=== PATIENT | male | born 1980 | race Caucasian/White ===

== ENCOUNTER 2018-05-09 15:01 | Inpatient (IN) | payer OTHER ==
[~2018-05-09] VITALS: Ht 190.5 cm; Wt 96.6 kg
[2018-05-09 15:30] VITALS: BP 95/61
[2018-05-09] MEDS ORDERED: ONDANSETRON PF 4 MG/2 ML VIAL. IV PRN (15:45)
[2018-05-09] MEDS ORDERED: MORPHINE SULFATE 4 MG/ML VIAL. IV PRN (15:45)
[2018-05-09] MEDS ORDERED: IV NORMAL SALINE 1000ML BAG 1,000 ML IV ONE (15:45)
[2018-05-09 17:34] LABS: BASO # 0.1 x10^3/uL (0.0-0.2); BASO % 1 % (0-3); EOS # 0.3 x10^3/uL (0.0-0.7); EOS % 3 % (0-3); HEMATOCRIT 42.7 % (39.0-53.0); HEMOGLOBIN 14.5 g/dL (13.0-17.5); LYMPH # 1.3 x10^3/uL (1.0-4.8); LYMPH % 13 % (24-48); MEAN CORPUSCULAR HEMOGLOBIN 32 pg (25-35); MEAN CORPUSCULAR HGB CONC 34 g/dL (31-37); MEAN CORPUSCULAR VOLUME 95 fL (79-100); MONO # 0.6 x10^3/uL (0.0-1.1); MONO % 5 % (0-9); NEUT % 78 % (31-73); PLATELET COUNT 245 x10^3/uL (140-400); RED BLOOD COUNT 4.51 x10^6/uL (4.30-5.70); RED CELL DISTRIBUTION WIDTH 12.6 % (11.5-14.5); WHITE BLOOD COUNT 10.2 x10^3/uL (4.0-11.0)
[2018-05-09 17:50] LABS: CALCIUM 9.5 mg/dL (8.5-10.1); GFR 84.1; POTASSIUM 4.3 mmol/L (3.5-5.1)
[2018-05-09 17:56] LABS: ALBUMIN 3.5 g/dL (3.4-5.0); ALBUMIN/GLOBULIN RATIO 0.8 (1.0-1.7); TOTAL BILIRUBIN 0.5 mg/dL (0.2-1.0); TOTAL PROTEIN 7.8 g/dL (6.4-8.2)
[2018-05-09] MEDS: IV NORMAL SALINE 1000ML BAG 1,000 ML IV SCH ×2 (18:26→21:05)
[2018-05-09] MEDS: MEROPENEM 500 MG in IV NORMAL SALINE 50ML 50 ML IV SCH (18:47)
[2018-05-09] MEDS ORDERED: HYDROmorphone 2 MG/ML VIAL IV PRN (19:00)
[2018-05-09] MEDS ORDERED: DAPTOmycin (GENERIC) IVPB 580 MG in IV NORMAL SALINE 50ML 50 ML IV ONE (19:30)
[2018-05-09] MEDS ORDERED: MORP30TA83 PO (19:33)
[2018-05-09] MEDS ORDERED: CLON1TAB11 PO (19:33)
[2018-05-09] MEDS ORDERED: DOXY50CA PO (19:33)
[2018-05-09] MEDS ORDERED: SERT100T PO (19:33)
[2018-05-09] MEDS ORDERED: HYDR2TAB31 PO (19:33)
[2018-05-09] MEDS ORDERED: ONDA4TAB7 PO (19:33)
[2018-05-09 19:35] VITALS: BP 121/74
--- NOTE | 2018-05-09 19:59 | NUR ---
pt arrived to unit at 1530 via wheelchair from doctors office. pt is alert and oriented and complaining of 10/10 pain. pt is on RA. pt has abdominal wound and states he has been taking care of it at home for 2 months and that he hasnt seen a wound care center for this. pt also states he has been on doxycycline for 2 months for MRSA in the wound and is now having diarrhea. pt was informed that we need a cdiff sample and a wound culture was sent down. pt has call light within reach. will continue to monitor.
[2018-05-09] MEDS ORDERED: ONDANSETRON ODT 4 MG TAB.RAPDIS. PO PRN (20:00)
[2018-05-09] MEDS: MORPHINE ER 30 MG TABLET.ER PO SCH (21:04)
[2018-05-09] MEDS: clonazePAM 1 MG TABLET PO SCH (21:04)
[2018-05-09 23:16] VITALS: BP 152/84
[2018-05-10] MEDS: HYDROmorphone 2 MG TABLET PO PRN ×2 (00:30→12:45)
[2018-05-10] MEDS: MEROPENEM 500 MG in IV NORMAL SALINE 50ML 50 ML IV SCH ×2 (00:30→05:55)
[2018-05-10] MEDS: HYDROmorphone 2 MG/ML VIAL IV PRN ×9 (01:12→22:51)
[2018-05-10 03:18] VITALS: BP 129/82
[2018-05-10] MEDS: IV NORMAL SALINE 1000ML BAG 1,000 ML IV SCH ×2 (06:09→18:25)
[2018-05-10 07:00] VITALS: BP 102/60
--- NOTE | 2018-05-10 08:23 | PDOC ---
Infectious Disease Note Vital Sign Vital Signs Vital Signs Date Time Temp Pulse Resp B/P (MAP) Pulse Ox O2 Delivery O2 Flow Rate FiO2 05/10/18 06:23 96 Room Air 05/10/18 03:18 98.1 91 18 129/82 (98) 98.1 Labs Lab Laboratory Tests Test 05/09/18 17:25 White Blood Count 10.2 x10^3/uL (4.0-11.0) Red Blood Count 4.51 x10^6/uL (4.30-5.70) Hemoglobin 14.5 g/dL (13.0-17.5) Hematocrit 42.7 % (39.0-53.0) Mean Corpuscular Volume 95 fL (79-100) Mean Corpuscular Hemoglobin 32 pg (25-35) Mean Corpuscular Hemoglobin Concent 34 g/dL (31-37) Red Cell Distribution Width 12.6 % (11.5-14.5) Platelet Count 245 x10^3/uL (140-400) Neutrophils (%) (Auto) 78 % (31-73) Lymphocytes (%) (Auto) 13 % (24-48) Monocytes (%) (Auto) 5 % (0-9) Eosinophils (%) (Auto) 3 % (0-3) Basophils (%) (Auto) 1 % (0-3) Neutrophils # (Auto) 8.0 x10^3uL (1.8-7.7) Lymphocytes # (Auto) 1.3 x10^3/uL (1.0-4.8) Monocytes # (Auto) 0.6 x10^3/uL (0.0-1.1) Eosinophils # (Auto) 0.3 x10^3/uL (0.0-0.7) Basophils # (Auto) 0.1 x10^3/uL (0.0-0.2) Sodium Level 139 mmol/L (136-145) Potassium Level 4.3 mmol/L (3.5-5.1) Chloride Level 103 mmol/L (98-107) Carbon Dioxide Level 25 mmol/L (21-32) Anion Gap 11 (6-14) Blood Urea Nitrogen 4 mg/dL (8-26) Creatinine 1.0 mg/dL (0.7-1.3) Estimated GFR (Cockcroft-Gault) 84.1 BUN/Creatinine Ratio 4 (6-20) Glucose Level 90 mg/dL (70-99) Calcium Level 9.5 mg/dL (8.5-10.1) Total Bilirubin 0.5 mg/dL (0.2-1.0) Aspartate Amino Transf (AST/SGOT) 15 U/L (15-37) Alanine Aminotransferase (ALT/SGPT) 25 U/L (16-63) Alkaline Phosphatase 81 U/L (46-116) Total Protein 7.8 g/dL (6.4-8.2) Albumin 3.5 g/dL (3.4-5.0) Albumin/Globulin Ratio 0.8 (1.0-1.7) Objective Assessment Abd wound Abx allergies (PCN but has tolerated Amox) Vanc - redmans MRSA + currently on Doxy Diarrhea - resolved Anxiety disorder Plan Plan of Care Cont Meropenem but 1 gm q 8 Add po Zyvox Add surgical eval Await CT eval r/o abscess F/u labs and cults Thank you # [phone] SYLVIA BROWN MD May 10, 2018 08:23
--- NOTE | 2018-05-10 08:34 | PDOC2 ---
CHRISTY [facility]A [facility] 05/10/18 0834: CONSULT Date of Consult Date of Consult DATE: 05/10/18 TIME: 08:25 Reason for Consult Reason for Consult: abdominal wound Referring Physician Referring Physician: Dr Yeung Identification/Chief Complaint Chief Complaint abdominal wound Source Source: Chart review, Patient History of Present Illness Reason for Visit: Patient from a [facility]. Multiple abdominal surgeries for bowel perforations. Last surgery was in Feb 2018 after swallowing a pin, perf bowel. Enloe removed and wound did not heal. Has been doing wound care and packing wound Seen by pcp yesterday, having diarrhea increasing drainage and pain to wound--concern for abscess and sent for evaluation Past Medical History Psych: Anxiety, Depression, Other (suicidial ) Past Surgical History Past Surgical History: Appendectomy, Other (mulitple abdominal surgeries) Family History Family History: Other (noncontributory to current illness ) Social History <1 pack per day ALCOHOL: none Drugs: None Current Medications Current Medications Current Medications Morphine Sulfate (Morphine Sulfate) 4 mg PRN Q4HRS PRN IV PAIN Last administered on 05/09/18at 18:25; Start 05/09/18 at 15:45; Stop 05/09/18 at 18:58 ; Status DC Ondansetron HCl (Zofran) 4 mg PRN Q4HRS PRN IV NAUSEA/VOMITING; Start 05/09/18 at 15:45 Sodium Chloride 1,000 ml @ 150 mls/hr Q6H40M IV Last administered on at 06:09; Start 05/09/18 at 15:45 Sodium Chloride 1,000 ml @ 1,000 mls/hr 1X ONCE IV Last administered on at 18:26; Start 05/09/18 at 15:45; Stop 05/09/18 at 16:44; Status DC Meropenem 500 mg/ Sodium Chloride 50 ml @ 100 mls/hr Q6HRS IV ; Start 05/10/18 at 19:00; Stop 05/10/18 at 19:00; Status DC Daptomycin 580 mg/ Sodium Chloride 50 ml @ 100 mls/hr 1X ONCE IV Last administered on 05/09/18at 19:56; Start 05/09/18 at 19:30; Stop 05/09/18 at 19:59 ; Status DC Meropenem 500 mg/ Sodium Chloride 50 ml @ 100 mls/hr Q6HRS IV Last administered on 05/10/18at 05:55; Start 05/09/18 at 19:00 Hydromorphone HCl (Dilaudid) 2 mg PRN Q4HRS PRN IV PAIN Last administered on at 22:15; Start 05/09/18 at 19:00; Stop 05/10/18 at 00:51; Status DC Clonazepam (KlonoPIN) 1 mg BID PO Last administered on 05/09/18at 21:04; Start 05/09/18 at 21:00 Morphine Sulfate (Ms Contin) 30 mg BID PO Last administered on 05/09/18at 21:04 ; Start 05/09/18 at 21:00 Hydromorphone HCl (Dilaudid) 2 mg PRN Q4HRS PRN PO PAIN Last administered on at 00:30; Start 05/09/18 at 20:00 Ondansetron HCl (Zofran Odt) 4 mg PRN Q6HRS PRN PO NAUSEA/VOMITING; Start 05/09 at 20:00 Sertraline HCl (Zoloft) 200 mg DAILY PO ; Start 05/10/18 at 09:00 Hydromorphone HCl (Dilaudid) 2 mg PRN Q2HR PRN IV PAIN Last administered on at 06:23; Start 05/10/18 at 01:00 Linezolid (Zyvox) 600 mg BID PO ; Start 05/10/18 at 09:00 Active Scripts Active Reported Doxycycline Hyclate 50 Mg Capsule 0 PO BID Zoloft (Sertraline Hcl) 100 Mg Tablet 200 Mg PO DAILY Dilaudid (Hydromorphone Hcl) 2 Mg Tablet 2 Mg PO PRN Q4HRS PRN Ms Contin (Morphine Sulfate) 30 Mg Tablet.er 1 Tab PO BID Clonazepam 1 Mg Tablet 1 Tab PO BID Zofran (Ondansetron Hcl) 4 Mg Tablet 1 Tab PO PRN Q6HRS PRN Allergies Allergies: Coded Allergies: Penicillins (Verified Allergy, Intermediate, Unknown, 05/09/18) fentanyl (Verified Allergy, Mild, Itching, 05/09/18) vancomycin (Verified Adverse Reaction, Mild, 05/09/18) "red man syndrome" ROS General: YES: Chills, Appetite (loss); No: Other (fevers) PSYCHOLOGICAL ROS: YES: Anxiety, Depression Eyes: No Blurry vision, No Double vision HEENT: No: Heacaches, Sore Throat Hematological and Lymphatic: No: Bleeding Problems, Blood Clots Respiratory: No: Cough Cardiovascular: No Chest Pain, No Palpitations Gastrointestinal: Yes Abdominal Pain; No Vomiting Genitourinary: No Dysuria, No Hematuria Musculoskeletal: No Joint Pain, No Muscle Pain Neurological: No Impaired Coord/balance, No Numbness/Tingling Skin: Yes Other (see hpi) Physical Exam General: Alert, Oriented X3, Cooperative, No acute distress HEENT: PERRLA, Mucous membr. moist/pink Lungs: Clear to auscultation, Normal air movement Heart: Regular rate, Normal S1, Normal S2, No murmurs Abdomen: Soft, Other (scarred abdomen from mulitple surgeries, open wound to left abdomen--tender, ? swelling under wound, attempted to probe, however very tender on exam, some drainage, mild erythema ) Extremities: No clubbing, No cyanosis Neuro: Normal speech, Sensation intact Psych/Mental Status: Mental status NL, Mood NL Vitals VITALS Vital Signs Date Time Temp Pulse Resp B/P (MAP) Pulse Ox O2 Delivery O2 Flow Rate FiO2 05/10/18 06:23 96 Room Air 05/10/18 03:18 98.1 91 18 129/82 (98) 98.1 Labs Labs Laboratory Tests Test 05/09/18 17:25 White Blood Count 10.2 x10^3/uL (4.0-11.0) Red Blood Count 4.51 x10^6/uL (4.30-5.70) Hemoglobin 14.5 g/dL (13.0-17.5) Hematocrit 42.7 % (39.0-53.0) Mean Corpuscular Volume 95 fL (79-100) Mean Corpuscular Hemoglobin 32 pg (25-35) Mean Corpuscular Hemoglobin Concent 34 g/dL (31-37) Red Cell Distribution Width 12.6 % (11.5-14.5) Platelet Count 245 x10^3/uL (140-400) Neutrophils (%) (Auto) 78 % (31-73) Lymphocytes (%) (Auto) 13 % (24-48) Monocytes (%) (Auto) 5 % (0-9) Eosinophils (%) (Auto) 3 % (0-3) Basophils (%) (Auto) 1 % (0-3) Neutrophils # (Auto) 8.0 x10^3uL (1.8-7.7) Lymphocytes # (Auto) 1.3 x10^3/uL (1.0-4.8) Monocytes # (Auto) 0.6 x10^3/uL (0.0-1.1) Eosinophils # (Auto) 0.3 x10^3/uL (0.0-0.7) Basophils # (Auto) 0.1 x10^3/uL (0.0-0.2) Sodium Level 139 mmol/L (136-145) Potassium Level 4.3 mmol/L (3.5-5.1) Chloride Level 103 mmol/L (98-107) Carbon Dioxide Level 25 mmol/L (21-32) Anion Gap 11 (6-14) Blood Urea Nitrogen 4 mg/dL (8-26) Creatinine 1.0 mg/dL (0.7-1.3) Estimated GFR (Cockcroft-Gault) 84.1 BUN/Creatinine Ratio 4 (6-20) Glucose Level 90 mg/dL (70-99) Calcium Level 9.5 mg/dL (8.5-10.1) Total Bilirubin 0.5 mg/dL (0.2-1.0) Aspartate Amino Transf (AST/SGOT) 15 U/L (15-37) Alanine Aminotransferase (ALT/SGPT) 25 U/L (16-63) Alkaline Phosphatase 81 U/L (46-116) Total Protein 7.8 g/dL (6.4-8.2) Albumin 3.5 g/dL (3.4-5.0) Albumin/Globulin Ratio 0.8 (1.0-1.7) Laboratory Tests Test 05/09/18 17:25 White Blood Count 10.2 x10^3/uL (4.0-11.0) Red Blood Count 4.51 x10^6/uL (4.30-5.70) Hemoglobin 14.5 g/dL (13.0-17.5) Hematocrit 42.7 % (39.0-53.0) Mean Corpuscular Volume 95 fL (79-100) Mean Corpuscular Hemoglobin 32 pg (25-35) Mean Corpuscular Hemoglobin Concent 34 g/dL (31-37) Red Cell Distribution Width 12.6 % (11.5-14.5) Platelet Count 245 x10^3/uL (140-400) Neutrophils (%) (Auto) 78 % (31-73) Lymphocytes (%) (Auto) 13 % (24-48) Monocytes (%) (Auto) 5 % (0-9) Eosinophils (%) (Auto) 3 % (0-3) Basophils (%) (Auto) 1 % (0-3) Neutrophils # (Auto) 8.0 x10^3uL (1.8-7.7) Lymphocytes # (Auto) 1.3 x10^3/uL (1.0-4.8) Monocytes # (Auto) 0.6 x10^3/uL (0.0-1.1) Eosinophils # (Auto) 0.3 x10^3/uL (0.0-0.7) Basophils # (Auto) 0.1 x10^3/uL (0.0-0.2) Sodium Level 139 mmol/L (136-145) Potassium Level 4.3 mmol/L (3.5-5.1) Chloride Level 103 mmol/L (98-107) Carbon Dioxide Level 25 mmol/L (21-32) Anion Gap 11 (6-14) Blood Urea Nitrogen 4 mg/dL (8-26) Creatinine 1.0 mg/dL (0.7-1.3) Estimated GFR (Cockcroft-Gault) 84.1 BUN/Creatinine Ratio 4 (6-20) Glucose Level 90 mg/dL (70-99) Calcium Level 9.5 mg/dL (8.5-10.1) Total Bilirubin 0.5 mg/dL (0.2-1.0) Aspartate Amino Transf (AST/SGOT) 15 U/L (15-37) Alanine Aminotransferase (ALT/SGPT) 25 U/L (16-63) Alkaline Phosphatase 81 U/L (46-116) Total Protein 7.8 g/dL (6.4-8.2) Albumin 3.5 g/dL (3.4-5.0) Albumin/Globulin Ratio 0.8 (1.0-1.7) Assessment/Plan Assessment/Plan chronic abdominal wound will await CT will consult wound care WALDEMAR HENNING MD 05/10/18 1148: CONSULT Assessment/Plan Assessment/Plan Patient seen and examined by me would like to eat. His abdomen has multiple scars deformity there is a open wound with granulation tissue small amount of fluid area around the wound is tender to palpation. CT scan shows deformity and open wound no evidence of drainable fluid collection or abscess. Agree with [place] assessment plan with wound care and antibiotics for cellulitis CHRISTY ARRIAGA APRN May 10, 2018 08:34 WALDEMAR HENNING MD May 10, 2018 11:48
[2018-05-10] MEDS ORDERED: IOHEXOL 300 MG/ML 100ML VIAL. IV ONE (09:15)
--- NOTE | 2018-05-10 09:20 | NUR ---
SW has reviewed pt's medical chart and evaluated for potential dc needs. Pt is from a mental health facility and was admitted for wound care. Pt has a hx of MDD and KELSEY. SW will follow for wound care needs and return to facility upon dc.
[2018-05-10] MEDS ORDERED: CONTRAST GIVEN. MC PRN (09:30)
--- NOTE | 2018-05-10 09:52 | CONS ---
DATE OF CONSULTATION: 05/10/2018 LOCATION: The patient's room is 414. REQUESTING PHYSICIAN: Dr. Yeung. REASON FOR CONSULTATION: Abdominal wound. HISTORY OF PRESENT ILLNESS: The patient is a 37-year-old gentleman with history of anxiety, compulsive disorder. He states at age 11, he underwent an appendectomy. Since that time, he has had complications with Pica and has had multiple abdominal surgeries secondary to obstruction and thick adhesions. He states his last surgery was performed at [facility] in February. When he followed up to have his idania removed, it appeared that the wound was somewhat swollen. [place] were removed. Apparently, a fair amount of material was expressed. It was decided at that time they are going to let the wound heal by secondary intention. At that time, he did not qualify for a wound VAC. He has since seen Dr. Worthington. Dr. Worthington recommend him to get a CT scan at [facility]; however, he had been having a fair amount of diarrhea and was dehydrated. When he went to [facility], they could not get an IV placed, though he had already drank the contrast. He then followed up with Dr. Worthington who [facility]. Yesterday, I was consulted. Recommended institution of Zosyn, was then called back and told he was ALLERGIC TO ZOSYN, changed it to meropenem. We had no laboratory values at that time. Also, he was told that he had a red man syndrome with vancomycin. Therefore, daptomycin was instituted. He has been complaining of some loose stools; however, these have improved. He also has had some chills and sweats, but no direct fevers. He has no headaches, sore throat, cough, chest pain. No dysuria, frequency, urgency and denies any falls or trauma. PAST MEDICAL HISTORY: Positive for depression, severe anxiety, some questionable obsessive compulsive. PAST SURGICAL HISTORY: Positive for appendectomy. Also has had 10 abdominal surgeries with a history of perforation, impaction. Also, recently admitted to [facility]. REVIEW OF SYSTEMS: Otherwise negative. ALLERGIES: LISTED VANCOMYCIN CAUSING RED MAN'S. PENICILLIN IS LISTED, BUT HE HAS TOLERATED AMOXICILLIN AND AUGMENTIN. ALSO, MS CONTIN, FENTANYL, MORPHINE AND DARVOCET LISTED. SOCIAL HISTORY: He is a smoker. He is , has two children. Denies any alcohol. Works for [employer]. FAMILY HISTORY: Positive for diabetes, high blood pressure, heart disease. CURRENT MEDICATIONS: Include Daptomycin x 1, meropenem 500 q.6, Klonopin, Dilaudid, MS Contin. Jayden. Benedict Sorensen. PHYSICAL EXAMINATION: VITAL SIGNS: He is afebrile, has been afebrile since admission. Temperature 98.1, pulse 91, respirations 18, blood pressure 129/82, sat 96% on room air. CONSTITUTIONAL: He is alert, cooperative. He is in no acute distress. HEENT: Pupils are equal and reactive. He has normal conjunctivae. Oral cavity, pharynx clear. NECK: Supple. Good range of motion. LUNGS: Clear to auscultation bilaterally. HEART: S1, S2. ABDOMEN: Soft, nondistended. He has got an abdominal wound in his left mid to lower section. Appears to be clean. There is no gross surrounding erythema, although does have some tenderness. There is, maybe, some fullness associated with it as well. EXTREMITIES: Without clubbing, cyanosis or gross edema. He has got a right upper extremity PICC line without signs of any complications. SKIN: Warm to touch without signs of rash. He has multiple tattoos. NEUROLOGIC: He is nonfocal, answered questions appropriately, moves all extremities. PSYCHIATRIC: Affect is appropriate. LABORATORY DATA: White count 10.2, hemoglobin of 14.5, platelets of 245, neutrophils 78, lymphs are 13. Creatinine of 1, with normal liver function study tests. There is no radiological studies. IMPRESSION: 1. Abdominal wound. 2. Antibiotic allergies, HAS PENICILLIN LISTED, but has tolerated amoxicillin and Augmentin. 3. VANCOMYCIN LISTED RED MAN'S. 4. History of methicillin-resistant Staphylococcus aureus, currently on doxycycline prior to admission. 5. Diarrhea, has resolved. 6. Anxiety disorder. RECOMMENDATIONS: We will continue the meropenem 1 gram IV q.8. Add p.o. Zyvox. Await surgical evaluation. Await CT scan to rule out abscess. Follow up labs and follow up cultures. Thank you for the opportunity to participate in the patient's care. Should you have any questions, please do not hesitate to contact me. SYLVIA BROWN MD DR: ANÍBAL/leticia JOB#: [id number] / [id number]
--- NOTE | 2018-05-10 10:12 | HP ---
ADMIT DATE: 05/09/2018 HISTORY OF PRESENT ILLNESS: The patient is a 37-year-old male patient, who was seen yesterday at Dr. Worthington's office and who contacted me as he has nonhealing abdominal wound. He was also apparently dehydrated, has had nausea and recurrent bouts of diarrhea and therefore, a decision was made to admit him to [place] directly to start him on IV fluid, arrange for CT scan of the abdomen and pelvis as well as consult the Surgical team as well as the Infectious Disease and Wound Care team. Apparently, he has undergone about 12 abdominal surgeries in multiple places including [place], [place], [facility] and [place]. The last surgery was done in [facility] on 02/2018 after swallowing a pen with resultant perforated bowel. Apparently, staple was removed and wound did not dehisce, has been doing wound care and packing his wounds without much success and therefore, resulted in this admission. PAST MEDICAL HISTORY: Significant for anxiety, depression, and suicidal attempt. PAST SURGICAL HISTORY: Significant for appendectomy and multiple abdominal surgeries. FAMILY HISTORY: Noncontributory. SOCIAL HISTORY: He is . He smokes cigarettes, does not drink alcohol or recreational drugs. 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 ALLERGIES: He is allergic to PENICILLIN, FENTANYL, VANCOMYCIN and DARVOCET. MEDICATIONS: He was on following medications: He was on doxycycline 50 mg p.o. b.i.d., hydromorphone 2 mg every 4 hours, morphine sulfate extended release 30 mg twice a day, clonazepam 1 mg b.i.d., sertraline 100 mg once a day, and ondansetron 4 mg every 6 hours. REVIEW OF SYSTEMS: As per history of present illness. PHYSICAL EXAMINATION: GENERAL: When I examined him, he looked well and was clearly in no apparent respiratory distress. No pallor, jaundice, cyanosis, or thyromegaly. No jugular venous distension. No lower limb edema. VITAL SIGNS: His heart rate was 90, blood pressure was 95/61, temperature was 98, respiratory rate 18 and oxygen saturation was 96%. HEAD, EYES, EARS, NOSE AND THROAT: Showed normocephalic, atraumatic. NECK: Supple. HEART: Showed normal first and second sounds. No gallop, rub or murmur. CHEST: Clear to auscultation. No crepitation or rhonchi. ABDOMEN: Distended, soft, nontender with chronic abdominal wound covered with dressing. There is no tenderness. No guarding or rigidity. No organomegaly. All hernial orifice intact. Bowel sounds normal. NEUROLOGIC: He was awake, alert, responding appropriately. All cranial nerves intact. EXTREMITIES: He moves extremities without difficulty, ambulates without assistance or assistive devices. LABORATORY DATA: Showed a white cell count 10,200, hemoglobin 14.5, hematocrit 42, MCV 95, and platelet count of 245,000. His chemistry showed a serum sodium 139, potassium 4.3, chloride 103, bicarbonate 11, BUN 4, creatinine 1, estimated GFR was 84 mL per minute. His glucose was 90, calcium was 9.5. Total bilirubin, AST, ALT, alkaline phosphatase were normal. Total protein was 7.8, albumin was 3.5. ASSESSMENT AND PLAN: The patient was continued on meropenem and continued his oral pain medication. I arranged for him to have the lab work as well as CT scan of the abdomen and pelvis with contrast. As it is difficult to get an IV access, I arranged for him also to have a PICC line. Once we have that we will arrange for a CT scan of the abdomen and pelvis with IV contrast. His creatinine is normal. I will consult the Surgical Team and Wound Care Team, Infectious Disease and decide on further management accordingly. FATIMAH NOLAND MD DR: SHANNAN/leticia JOB#: [id number] / [id number]
--- NOTE | 2018-05-10 10:38 | RAD ---
CT of the abdomen and pelvis with contrast, 05/10/2018: HISTORY: Abdominal wound, bowel resection Multidetector CT imaging was performed following an IV bolus injection of iodinated contrast material. No oral contrast material was administered for this study. There is contrast material in the colon, presumably from a previous diagnostic study. No hepatic abnormality is identified. The gallbladder is unremarkable. The pancreas shows no abnormality. The spleen is of normal size. No renal or adrenal abnormality is detected. The abdominal aorta is unremarkable. No abdominal or pelvic adenopathy is seen. The bladder is unremarkable. There are surgical sutures related to small bowel loops in the left upper quadrant and in the right lower quadrant. No bowel dilatation is seen to suggest obstruction. No free air or free fluid is seen within the abdomen. There is deformity of the anterior abdominal wall centered at the mid abdomen level. There appears to be an open wound centered just the left of midline. There are streaky subcutaneous opacities compatible with inflammation and/or scarring. There is a 2.2 cm elongated radiopacity in the subcutaneous soft tissues just the left of midline which may represent a large surgical clip. Some other type of foreign body cannot be excluded. There are gas collections in the subcutaneous soft tissues in this region. There is soft tissue thickening involving the fascia between the thinned rectus abdominis musculature likely due to to scarring. There is underlying matted small bowel loops without definite extension into the subcutaneous soft tissues. IMPRESSION: 1. Previous small bowel surgeries. 2. Scarring and deformity involving the anterior abdominal wall at the midline with matting of underlying small bowel loops. An open wound is evident to the left of midline with adjacent subcutaneous gas collections and streaky edema. No discrete drainable fluid collection is seen in the abdominal wall. PQRS Compliance Statement: One or more of the following individualized dose reduction techniques were utilized for this examination: 1. Automated exposure control 2. Adjustment of the mA and/or kV according to patient size 3. Use of iterative reconstruction technique Electronically signed by: James Jiang MD (05/10/2018 10:35 AM) [facility]
[2018-05-10 11:00] VITALS: BP 97/58
[2018-05-10] MEDS: clonazePAM 1 MG TABLET PO SCH ×2 (12:49→20:33)
[2018-05-10] MEDS: SERTRALINE 50 MG TABLET. PO SCH (12:49)
[2018-05-10] MEDS: MORPHINE ER 30 MG TABLET.ER PO SCH ×2 (12:50→20:33)
[2018-05-10 15:00] VITALS: BP 99/55
--- NOTE | 2018-05-10 17:38 | NUR ---
Wound Care: Consult to eval and treat pt for open abdominal wound from prior multiple operations. Per Soumya CORONA, OK to start veraflow wound vac to treat wound. Wound measured (see detailed assessment), packed with one piece of black foam. Periwound prepared with ostomy ring and skin prep. Veraflow set to instill 16cc every 3.5 hours for a 10 minute dwell time. No other open areas noted on head to toe inspection. D/t pain intolerance, vac settings reduced to 100mmhg of suction. Plan to follow up 05/13/18
[2018-05-10] MEDS: MULTIVITAMIN with MINERAL TABLET. PO SCH (18:26)
[2018-05-10] MEDS: LINEZOLID 600 MG TABLET PO SCH ×2 (18:27→20:33)
[2018-05-10] MEDS: ASCORBIC ACID 500 MG TABLET PO SCH (18:27)
[2018-05-10] MEDS: MEROPENEM 1 GM in IV NORMAL SALINE 100ML 100 ML IV SCH ×2 (18:33→22:22)
[2018-05-10] MEDS ORDERED: MEROPENEM 500 MG in IV NORMAL SALINE 50ML 50 ML IV SCH (19:00)
[2018-05-10 19:20] VITALS: BP 108/62
--- NOTE | 2018-05-10 20:25 | PN ---
DATE: 05/10/2018 SUBJECTIVE: The patient is sitting at the edge of the bed comfortably, in no apparent distress. On questioning him, he continued to complain of nausea, has only 1 episode of diarrhea this morning, has some chills, rigors with no fever. OBJECTIVE: GENERAL: When I examined him this morning, he looked well and was clearly in no apparent respiratory distress. No pallor, jaundice, cyanosis or thyromegaly. No jugular venous distention. No limb edema. VITAL SIGNS: Heart rate was 98, blood pressure was 102/60, temperature was 98.1, respiratory rate was 16 and oxygen saturation was 97%. LABORATORY DATA: He has no lab work done this morning, his lab work done yesterday were all within acceptable range. ASSESSMENT AND PLAN: He has a PICC line placed and he has arrangement for a CT scan of the abdomen and pelvis with contrast. He apparently was seen by the Infectious Disease and he is currently on meropenem 1 gram IV q. 8 hourly as well as linezolid 600 mg twice a day. We will continue with his pain medication and antibiotic. Await the result of the CT scan before further management. FATIMAH NOLAND MD DR: SHANNAN/leticia JOB#: [id number] / [id number]
[2018-05-10] MEDS: LACTOBACILLUS RHAMNOSUS GG 1 CAPSULE. PO SCH (20:33)
[2018-05-10 23:08] VITALS: BP 103/66
[2018-05-11] MEDS: IV NORMAL SALINE 1000ML BAG 1,000 ML IV SCH ×4 (01:26→20:39)
[2018-05-11] MEDS: HYDROmorphone 2 MG/ML VIAL IV PRN ×8 (01:26→20:37)
[2018-05-11 03:05] VITALS: BP 102/61
[2018-05-11] MEDS: HYDROmorphone 2 MG TABLET PO PRN ×3 (06:00→22:12)
[2018-05-11] MEDS: MEROPENEM 1 GM in IV NORMAL SALINE 100ML 100 ML IV SCH ×3 (06:05→22:14)
[2018-05-11 07:00] VITALS: BP 91/68
[2018-05-11] MEDS: ASCORBIC ACID 500 MG TABLET PO SCH (09:12)
[2018-05-11] MEDS: LINEZOLID 600 MG TABLET PO SCH ×2 (09:12→20:37)
[2018-05-11] MEDS: MULTIVITAMIN with MINERAL TABLET. PO SCH (09:12)
[2018-05-11] MEDS: LACTOBACILLUS RHAMNOSUS GG 1 CAPSULE. PO SCH ×2 (09:12→20:38)
[2018-05-11] MEDS: clonazePAM 1 MG TABLET PO SCH ×2 (09:13→20:38)
[2018-05-11] MEDS: SERTRALINE 50 MG TABLET. PO SCH (09:13)
[2018-05-11] MEDS: MORPHINE ER 30 MG TABLET.ER PO SCH ×2 (09:13→20:38)
--- NOTE | 2018-05-11 10:52 | PDOC ---
Infectious Disease Note Subjective Subjective c/o pain No F/C/N/V/D/SOA ROS ROS per HPI Vital Sign Vital Signs Vital Signs Date Time Temp Pulse Resp B/P (MAP) Pulse Ox O2 Delivery O2 Flow Rate FiO2 05/11/18 10:17 Room Air 05/11/18 07:00 98.3 85 18 91/68 (76) 97 98.3 Physical Exam PHYSICAL EXAM GENERAL: Propped up in bed, alert, NAD HEENT: Pupils are equal and reactive. He has normal conjunctivae. Oral cavity , pharynx clear. NECK: Supple. Good range of motion. LUNGS: Clear to auscultation bilaterally. HEART: S1, S2. ABDOMEN: Soft, nondistended. Abdominal wound in place, no redness EXTREMITIES: Without clubbing, cyanosis or gross edema. SKIN: Warm to touch without signs of rash. Multiple tattoos. NEUROLOGIC: Alert, nonfocal, answered questions appropriately, moves all extremities. RUE-midline(05/09) clean Labs Lab IMPRESSION: 1. Previous small bowel surgeries. 2. Scarring and deformity involving the anterior abdominal wall at the midline with matting of underlying small bowel loops. An open wound is evident to the left of midline with adjacent subcutaneous gas collections and streaky edema. No discrete drainable fluid collection is seen in the abdominal wall. Micro 05/09/18 Blood Culture - Preliminary, Resulted NO GROWTH AFTER 1 DAY ANAEROBIC-AEROBIC CULTURE PENDING ANAEROBIC RES 1 PENDING AEROBIC CULT PENDING AEROBIC RES 1 PENDING GRAM STAIN Final Final report GRAM STAIN RES 1 Final Comment No white blood cells seen. GRAM STAIN RES 2 Final No organisms seen Objective Assessment Abdominal wound. CT neg abscess. No organisms on gram stain Antibiotic allergies, HAS PENICILLIN LISTED, but has tolerated amoxicillin and Augmentin. VANCOMYCIN LISTED RED MAN'S. History of MRSA, currently on doxycycline prior to admission. Diarrhea, has resolved. Anxiety disorder. Plan Plan of Care Cont Meropenem but 1 gm q 8 and Zyvox Probiotics F/u am labs and cults Supportive care D/w RN Attending Co-Sign Attending Co-Sign The patient was seen and interviewed as well as examined at the bedside. The chart was reviewed. The case was discussed. Agree with the plan of care. RONAK DE LEON APRN May 11, 2018 10:52 SYLVIA BROWN MD May 11, 2018 13:55
[2018-05-11 11:00] VITALS: BP 101/59
--- NOTE | 2018-05-11 14:46 | PDOC ---
SURGICAL PROGRESS NOTE Subjective Pt without new c/o Vital Signs Vital Signs Date Time Temp Pulse Resp B/P (MAP) Pulse Ox O2 Delivery O2 Flow Rate FiO2 05/11/18 14:14 Room Air 05/11/18 11:00 98.2 83 18 101/59 (73) 96 98.2 I&O Intake and Output 05/11/18 07:00 Intake Total 720 ml Balance 720 ml Intake Oral 720 ml # Voids 7 General: Alert, Oriented X3, Cooperative, No acute distress Abdomen: Soft, No tenderness, Other (wound vac in place, hard area just below, but no infection, suspect wound packing) Labs Laboratory Tests Test 05/09/18 17:25 White Blood Count 10.2 x10^3/uL (4.0-11.0) Red Blood Count 4.51 x10^6/uL (4.30-5.70) Hemoglobin 14.5 g/dL (13.0-17.5) Hematocrit 42.7 % (39.0-53.0) Mean Corpuscular Volume 95 fL (79-100) Mean Corpuscular Hemoglobin 32 pg (25-35) Mean Corpuscular Hemoglobin Concent 34 g/dL (31-37) Red Cell Distribution Width 12.6 % (11.5-14.5) Platelet Count 245 x10^3/uL (140-400) Neutrophils (%) (Auto) 78 % (31-73) Lymphocytes (%) (Auto) 13 % (24-48) Monocytes (%) (Auto) 5 % (0-9) Eosinophils (%) (Auto) 3 % (0-3) Basophils (%) (Auto) 1 % (0-3) Neutrophils # (Auto) 8.0 x10^3uL (1.8-7.7) Lymphocytes # (Auto) 1.3 x10^3/uL (1.0-4.8) Monocytes # (Auto) 0.6 x10^3/uL (0.0-1.1) Eosinophils # (Auto) 0.3 x10^3/uL (0.0-0.7) Basophils # (Auto) 0.1 x10^3/uL (0.0-0.2) Sodium Level 139 mmol/L (136-145) Potassium Level 4.3 mmol/L (3.5-5.1) Chloride Level 103 mmol/L (98-107) Carbon Dioxide Level 25 mmol/L (21-32) Anion Gap 11 (6-14) Blood Urea Nitrogen 4 mg/dL (8-26) Creatinine 1.0 mg/dL (0.7-1.3) Estimated GFR (Cockcroft-Gault) 84.1 BUN/Creatinine Ratio 4 (6-20) Glucose Level 90 mg/dL (70-99) Calcium Level 9.5 mg/dL (8.5-10.1) Total Bilirubin 0.5 mg/dL (0.2-1.0) Aspartate Amino Transf (AST/SGOT) 15 U/L (15-37) Alanine Aminotransferase (ALT/SGPT) 25 U/L (16-63) Alkaline Phosphatase 81 U/L (46-116) Total Protein 7.8 g/dL (6.4-8.2) Albumin 3.5 g/dL (3.4-5.0) Albumin/Globulin Ratio 0.8 (1.0-1.7) Problem List abd wound cont wound vac TERRIE CARVAJAL MD May 11, 2018 14:46
[2018-05-11 15:00] VITALS: BP 99/62
[2018-05-11] MEDS ORDERED: ALTEPLASE 1MG SYRINGE. INT CAT ONE (16:00)
[2018-05-11 19:00] VITALS: BP 99/64
--- NOTE | 2018-05-11 20:13 | PN ---
DATE: 05/11/2018 SUBJECTIVE: The patient is resting, slightly propped up in bed, no apparent distress. He is angry at the nursing staff who did not give him IV hydromorphone and basically discontinued the wound VAC suction. His CT scan did not show any evidence of drainable abscess and the wound care team started him on wound VAC assisted closure device. He was seen also by the surgical team and apparently there is no surgical need for any surgical intervention at least for the time being and Infectious Disease specialist started him on meropenem and oral Zyvox. PHYSICAL EXAMINATION: GENERAL: When I examined him this morning, he looked well and was clearly in no apparent respiratory distress, slightly pale, no jaundice, cyanosis, or thyromegaly. No jugular venous distension. No lower limb edema. VITAL SIGNS: His heart rate was 83, blood pressure 102/61, temperature was 98.2, respiratory rate was 18, and oxygen saturation 97%. The rest of the exam is stable, has not really changed. His intake was 480, output was 325. ASSESSMENT AND PLAN: Abdominal wound covered with wound vacuum assisted closure device. The CT scan showed no evidence of any drainable abscess. The plan is to continue with the wound care and wound VAC assisted closure device. Continue with IV antibiotic. Continue with the pain management. I explained to him that we can put him on controlled analgesia just for wound VAC, but he can have his 1 mg of Dilaudid every 2 hours. FATIMAH NOLAND MD DR: SHANNAN/leticia JOB#: [id number] / [id number]
[2018-05-11 23:00] VITALS: BP 104/64
[2018-05-12] MEDS: HYDROmorphone 2 MG/ML VIAL IV PRN ×9 (00:26→22:55)
--- NOTE | 2018-05-12 02:45 | NUR ---
Pt called RN to room for his Midline. When RN assessed Midline site his arm was swollen and the drsg had fluid underneath the tegaderm. Pt denies pain states he can taste the saline when the line is flushed. No blood return noted per shift report that is not new. Will await Dr's approval for continued Midline use. Meantime a 22g was started in his L FA. Iv pain meds were administered and drsg was changed to the Midline. IVF were decreased. Will continue to monitor.
[2018-05-12 03:00] VITALS: BP 108/68
[2018-05-12] MEDS: IV NORMAL SALINE 1000ML BAG 1,000 ML IV SCH ×4 (03:45→23:45)
[2018-05-12] MEDS: MEROPENEM 1 GM in IV NORMAL SALINE 100ML 100 ML IV SCH ×3 (06:24→22:55)
[2018-05-12 07:00] VITALS: BP 96/63
--- NOTE | 2018-05-12 08:03 | RAD ---
PORTABLE CHEST 1V History: RT ARM SWELLING AND REDNESS, PT STATES HAS MIDLINE IV. Comparison: Image available from August 15, 2006 without report. Heart size is not enlarged. No pneumothorax. No pleural effusion. No consolidating infiltrate. IMPRESSION: No consolidating infiltrate. Electronically signed by: Celestino Mark MD (05/12/2018 8:00 AM) [facility]
[2018-05-12] MEDS: SERTRALINE 50 MG TABLET. PO SCH (08:57)
[2018-05-12] MEDS: LACTOBACILLUS RHAMNOSUS GG 1 CAPSULE. PO SCH ×2 (08:57→22:54)
[2018-05-12] MEDS: clonazePAM 1 MG TABLET PO SCH ×2 (08:59→22:54)
[2018-05-12] MEDS: MULTIVITAMIN with MINERAL TABLET. PO SCH (08:59)
[2018-05-12] MEDS: MORPHINE ER 30 MG TABLET.ER PO SCH ×2 (08:59→22:54)
[2018-05-12] MEDS: LINEZOLID 600 MG TABLET PO SCH ×2 (08:59→22:54)
[2018-05-12] MEDS: ASCORBIC ACID 500 MG TABLET PO SCH (09:13)
--- NOTE | 2018-05-12 10:45 | PDOC ---
Infectious Disease Note Subjective Subjective Feels RUE is swollen and hurts some venous Doppler pending Abdomen feels no worse or better - but overall feels better No F/C/N/V/D/SOA ROS ROS per HPI otherwise neg Vital Sign Vital Signs Vital Signs Date Time Temp Pulse Resp B/P (MAP) Pulse Ox O2 Delivery O2 Flow Rate FiO2 05/12/18 09:13 Room Air 05/12/18 07:00 97.9 74 18 96/63 (74) 97 97.9 Physical Exam PHYSICAL EXAM GENERAL: Propped up in bed, alert, NAD HEENT: Pupils are equal and reactive. Oral cavity, pharynx clear. NECK: Supple. Good range of motion. LUNGS: Clear to auscultation bilaterally. HEART: S1, S2. ABDOMEN: Soft, nondistended. Abdominal wound in place, no redness EXTREMITIES: Without clubbing, cyanosis or gross edema. SKIN: Warm to touch without signs of rash. Multiple tattoos. NEUROLOGIC: Alert, nonfocal, answered questions appropriately, moves all extremities. RUE-midline(05/09) bruising Labs Micro IMPRESSION: Positive for deep venous thrombosis. Thrombus identified one of the paired brachial veins. 05/09/18 Blood Culture - Preliminary, Resulted NO GROWTH AFTER 1 DAY ANAEROBIC RES 1 PENDING AEROBIC RES 1 Preliminary Staphylococcus aureus AEROBIC RES 2 Preliminary Beta hemolytic Streptococcus, group B Objective Assessment Abdominal wound w/ Staph aureus and group B strep. CT neg abscess. Antibiotic allergies, HAS PENICILLIN LISTED, but has tolerated amoxicillin and Augmentin. VANCOMYCIN LISTED RED MAN'S. History of MRSA, currently on doxycycline prior to admission. Diarrhea, has resolved. Anxiety disorder. RUE -DVT Plan Plan of Care Cont Zyvox and Meropenem taper soon Probiotics F/u cultures am CBC f/u venous Doppler -reviewed and Dr. Yeung notified Supportive care Attending Co-Sign Attending Co-Sign The patient was seen and interviewed as well as examined at the bedside. The chart was reviewed. The case was discussed. Agree with the plan of care. RONAK DE LEON APRN May 12, 2018 10:45 SYLVIA BROWN MD May 12, 2018 12:39
[2018-05-12 11:00] VITALS: BP 95/58
--- NOTE | 2018-05-12 11:24 | RAD ---
Right upper extremity venous Doppler ultrasound HISTORY: RT ARM SWELLING, ML CATHETER IN PLACE TECHNIQUE: Grayscale, color Doppler and spectral waveform analysis is performed. Findings: Right internal jugular vein, subclavian vein and axillary vein appear patent. There is evidence of thrombus within one of the right brachial veins extending from the site of catheter placement to the axillary vein junction. Right basilic and cephalic veins are patent. IMPRESSION: Positive for deep venous thrombosis. Thrombus identified one of the paired brachial veins. FOR INTERNAL CODING PURPOSES Critical result: Findings discussed with nurse Mayra at 05/12/2018 11:18 AM. RESULT CODE: (C) Electronically signed by: Celestino Mark MD (05/12/2018 11:20 AM) [facility]
[2018-05-12] MEDS: HYDROmorphone 2 MG TABLET PO PRN (11:49)
--- NOTE | 2018-05-12 14:25 | PDOC ---
SURGICAL PROGRESS NOTE Subjective Pt without new c/o Vital Signs Vital Signs Date Time Temp Pulse Resp B/P (MAP) Pulse Ox O2 Delivery O2 Flow Rate FiO2 05/12/18 12:49 Room Air 05/12/18 11:00 98.5 73 18 95/58 (70) 97 98.5 I&O Intake and Output 05/12/18 07:00 Intake Total 120 ml Output Total 400 ml Balance -280 ml Intake Oral 120 ml Output Urine Total 400 ml # Voids 5 General: Alert, Oriented X3, Cooperative, No acute distress Abdomen: Soft, No tenderness, Other (wound vac in place) Problem List wound dehis cont wound vac DVT per primary TERRIE CARVAJAL MD May 12, 2018 14:25
--- NOTE | 2018-05-12 14:27 | NUR ---
This nurse called Dr. Yeung to discuss pain management, patient can do one IV or PO, not both together. Midline will be reassess tomorrow on need, or if should be taken out. This nurse will continue to monitor.
--- NOTE | 2018-05-12 14:45 | NUR ---
This nurse discussed with patient, IV vs PO, importance of pain management, safety. Patient stated, "I will leave AMA if you will not give me IV pain medications." This nurse educated patient on wound, DVT, and outcomes if leaving AMA. Notified MD STARR stated, "Do only IV at this time, patient is welcome to leave AMA, do education on DVT, wound, and outcomes." This nurse will enforce teaching, and will continue to assist with patient as needed.
[2018-05-12 15:00] VITALS: BP 98/65
--- NOTE | 2018-05-12 15:09 | PN ---
DATE: 05/12/2018 SUBJECTIVE: The patient is resting slightly propped up in bed, no apparent distress, awake, alert. On questioning, he is complaining of swelling of his right upper extremity after placement of his PICC line. Otherwise, his pain is well controlled. Continues to be on a wound vacuum assisted closure device for the abdominal wound. PHYSICAL EXAMINATION: GENERAL: When I examined him, he looked pale, not jaundiced, cyanosis, or thyromegaly. No jugular venous distension. No lower limb edema. VITAL SIGNS: His heart rate was 78, blood pressure was 108/58, temperature was 98.3, respiratory rate was 18 and oxygen saturation was 98% on room air. The rest of clinical exam is stable, has not really changed. LABORATORY DATA: Within acceptable range. ASSESSMENT: Abdominal wound, covered with wound vacuum assisted closure device. CT scan showed no evidence of any drainable abscesses. PLAN: To continue with wound care and wound VAC and assistive device. Continue with IV antibiotic and pain management. I will arrange for him to have a chest x-ray to confirm the placement of his PICC line. FATIMAH NOLAND MD DR: SHANNAN/leticia JOB#: [id number] / [id number]
[2018-05-12 19:00] VITALS: BP 108/64
[2018-05-12 23:00] VITALS: BP 116/73
[2018-05-13] MEDS: HYDROmorphone 2 MG/ML VIAL IV PRN ×10 (01:21→22:12)
[2018-05-13 03:00] VITALS: BP 97/55
--- NOTE | 2018-05-13 04:00 | NUR ---
Changed canister on wound vac.
[2018-05-13] MEDS: IV NORMAL SALINE 1000ML BAG 1,000 ML IV SCH ×4 (06:44→20:14)
[2018-05-13] MEDS: MEROPENEM 1 GM in IV NORMAL SALINE 100ML 100 ML IV SCH (06:44)
[2018-05-13 07:00] VITALS: BP 101/62
--- NOTE | 2018-05-13 08:45 | PDOC ---
Infectious Disease Note Subjective Subjective Feels RUE is swollen and hurts some venous Doppler pending Abdomen feels no worse or better - but overall feels better No F/C/N/V/D/SOA Vital Sign Vital Signs Vital Signs Date Time Temp Pulse Resp B/P (MAP) Pulse Ox O2 Delivery O2 Flow Rate FiO2 05/13/18 07:40 16 Room Air 05/13/18 03:00 98.1 67 97/55 (69) 96 98.1 Physical Exam PHYSICAL EXAM GENERAL: Propped up in bed, alert, NAD HEENT: Pupils are equal and reactive. Oral cavity, pharynx clear. NECK: Supple. Good range of motion. LUNGS: Clear to auscultation bilaterally. HEART: S1, S2. ABDOMEN: Soft, nondistended. Abdominal wound in place, no redness ,, wound is clean and healthy granulation, tunneling to 8 o'clock position EXTREMITIES: Without clubbing, cyanosis or gross edema. SKIN: Warm to touch without signs of rash. Multiple tattoos. NEUROLOGIC: Alert, nonfocal, answered questions appropriately, moves all extremities. RUE-midline(05/09) bruising Labs Micro Microbiology 05/09/18 Blood Culture - Preliminary, Resulted NO GROWTH AFTER 3 DAYS 05/09/18 Anaerobic/Aerobic Culture, Resulted Pending 05/09/18 Anaerobic Culture Result 1 (ISMAEL), Resulted Pending 05/09/18 Aerobic Culture - Final, Resulted 05/09/18 Aerobic Culture Result 1 (ISMAEL) - Final, Resulted 05/09/18 Aerobic Culture Result 2 (ISMAEL) - Final, Resulted 05/09/18 Antimicrobic Susceptibility - Final, Resulted 05/09/18 Gram Stain - Final, Resulted 05/09/18 Gram Stain Result 1 (ISMAEL) - Final, Resulted 05/09/18 Gram Stain Result 2 (ISMAEL) - Final, Resulted Objective Assessment 1. Abdominal wound. 2. Antibiotic allergies, HAS PENICILLIN LISTED, but has tolerated amoxicillin and Augmentin. 3. VANCOMYCIN LISTED RED MAN'S. 4. History of methicillin-resistant Staphylococcus aureus, currently on doxycycline prior to admission. 5. Diarrhea, has resolved. 6. Anxiety disorder. Plan Plan of Care Zyvox and Meropenem change to po doxy and vantin Probiotics F/u cultures am CBC d/c picc Supportive care VIVIEN LOPEZ MD May 13, 2018 08:45
[2018-05-13] MEDS: clonazePAM 1 MG TABLET PO SCH ×2 (08:46→20:05)
[2018-05-13] MEDS: LACTOBACILLUS RHAMNOSUS GG 1 CAPSULE. PO SCH ×2 (08:46→20:05)
[2018-05-13] MEDS: MULTIVITAMIN with MINERAL TABLET. PO SCH (08:46)
[2018-05-13] MEDS: ASCORBIC ACID 500 MG TABLET PO SCH (08:46)
[2018-05-13] MEDS: SERTRALINE 50 MG TABLET. PO SCH (08:46)
[2018-05-13] MEDS: MORPHINE ER 30 MG TABLET.ER PO SCH ×2 (08:46→20:05)
[2018-05-13] MEDS: DOXYCYCLINE HYCLATE 100 MG TABLET PO SCH ×2 (09:25→20:05)
[2018-05-13] MEDS: CEFDINIR 300 MG CAPSULE PO SCH ×2 (09:25→20:14)
--- NOTE | 2018-05-13 09:25 | PDOC ---
CHRISTY ARRIAGA APRN 05/13/18 0925: SURGICAL PROGRESS NOTE Subjective resting pain with wound vac removal Vital Signs Vital Signs Date Time Temp Pulse Resp B/P (MAP) Pulse Ox O2 Delivery O2 Flow Rate FiO2 05/13/18 08:54 16 Room Air 05/13/18 07:00 97.8 70 101/62 (75) 98 97.8 I&O Intake and Output 05/13/18 06:59 Intake Total 1740 ml Output Total 800 ml Balance 940 ml Intake Oral 1740 ml Output Urine Total 800 ml # Voids 1 # Bowel Movements 1 General: Alert, Oriented X3, Cooperative, No acute distress Abdomen: Soft, Other (wound clean) Assessment/Plan continue wound care, no surgery plans available as needed WALDEMAR HENNING MD 05/15/18 0835: SURGICAL PROGRESS NOTE Assessment/Plan Agree with Yuniel assessment and plan CHRISTY ARRIAGA [employer] May 13, 2018 09:25 WALDEMAR HENNING MD May 15, 2018 08:35
[2018-05-13 11:00] VITALS: BP 94/62
[2018-05-13 11:02] LABS: BASO % 1 % (0-3); EOS # 0.2 x10^3/uL (0.0-0.7); EOS % 5 % (0-3); LYMPH % 21 % (24-48); MEAN CORPUSCULAR HEMOGLOBIN 33 pg (25-35); MEAN CORPUSCULAR HGB CONC 34 g/dL (31-37); MEAN CORPUSCULAR VOLUME 96 fL (79-100); MONO # 0.5 x10^3/uL (0.0-1.1); MONO % 9 % (0-9); NEUT # 3.1 x10^3uL (1.8-7.7); NEUT % 64 % (31-73); PLATELET COUNT 203 x10^3/uL (140-400); RED BLOOD COUNT 4.29 x10^6/uL (4.30-5.70); RED CELL DISTRIBUTION WIDTH 12.4 % (11.5-14.5); WHITE BLOOD COUNT 4.9 x10^3/uL (4.0-11.0)
[2018-05-13 15:00] VITALS: BP 100/58
--- NOTE | 2018-05-13 17:20 | NUR ---
wound care patient seen per f/u of wound care consult, for wound vac dressing change. patients wound vac dressing was already removed by ID earlier today the wound had a wet to dry dressing on at the time of the arrival to the room. dressing removed and the wound was cleaned, measured and pictured and redressed with NPWT Veraflow settings at 16cc's NS instilled every 4 hours for 10 mins at 125mmHg continuous, ostomy ring applied to the brodie wound then 1 piece of foam applied to the wound. wound vac had a great seal and patient tolerated the dressing change. notified LUL Mckeon about the POC and wound care will continue to f/u.
--- NOTE | 2018-05-13 17:48 | PN ---
DATE: 05/13/2018 SUBJECTIVE: The patient is resting slightly propped up, sleeping comfortably, in no apparent distress. Nursing staff did not voice any concern today, had an uneventful night. PHYSICAL EXAMINATION: GENERAL: When I examined him, he looked somewhat pale, but not jaundiced or cyanosed. No thyromegaly. No jugular venous distension. No lower limb edema. VITAL SIGNS: His heart rate was 67, blood pressure was 97/55, temperature was 98, respiratory rate 18 and oxygen saturation was 96%. The rest of clinical exam is stable, has not changed. He has abdominal wound covered with wound vacuum assisted closure device. He has had a PICC line placed in his right upper extremity; however, his right upper extremity seems to be markedly swollen. We did right upper extremity venous Doppler ultrasound, which showed that the patient seemed to have evidence in his right brachial vein extending from the site of the catheter placement to the axillary vein junction, right basilic and cephalic veins are patent for which we started him on Lovenox 100 mg subcutaneously twice a day. If the patient does not need the PICC line, we probably can remove it and we can start him on oral Eliquis. ASSESSMENT: 1. Abdominal wound covered with wound vacuum assisted closure device. CT showed no evidence of any drainable abscess. 2. Right upper extremity deep vein thrombosis involving the right brachial extending to the right axillary vein for which he is now on Lovenox 1 mg/kg subcutaneous twice a day. I will await the evaluation by the Infectious Disease and if he does not need the IV antibiotic or they can be changed to something orally, we can switch him to oral Lovenox. Apparently, his abdominal wound has grown methicillin-resistant Staphylococcus aureus as well as beta hemolytic Streptococcus group B. FATIMAH NOLAND MD DR: SHANNAN/leticia JOB#: [id number] / [id number]
[2018-05-13 19:00] VITALS: BP 109/61
[2018-05-13 23:00] VITALS: BP 101/61
[2018-05-14] VITALS (7 sets, daily range): BP systolic 80–123; BP diastolic 41–89
[2018-05-14] MEDS: HYDROmorphone 2 MG/ML VIAL IV PRN ×6 (02:34→14:35)
[2018-05-14] MEDS: IV NORMAL SALINE 1000ML BAG 1,000 ML IV SCH ×5 (06:05→22:25)
--- NOTE | 2018-05-14 09:05 | PDOC ---
Infectious Disease Note Subjective Subjective pt is feeling good ROS ROS no n/v/d/sob Vital Sign Vital Signs Vital Signs Date Time Temp Pulse Resp B/P (MAP) Pulse Ox O2 Delivery O2 Flow Rate FiO2 05/14/18 08:12 16 Room Air 05/14/18 07:00 98.2 62 98/57 (71) 100 98.2 Physical Exam PHYSICAL EXAM GENERAL: Propped up in bed, alert, NAD HEENT: Pupils are equal and reactive. Oral cavity, pharynx clear. NECK: Supple. Good range of motion. LUNGS: Clear to auscultation bilaterally. HEART: S1, S2. ABDOMEN: Soft, nondistended. Abdominal wound in place, no redness ,, wound is clean and healthy granulation, tunneling to 8 o'clock position EXTREMITIES: Without clubbing, cyanosis or gross edema. SKIN: Warm to touch without signs of rash. Multiple tattoos. NEUROLOGIC: Alert, nonfocal, answered questions appropriately, moves all extremities. RUE-midline(05/09) bruising Labs Lab Laboratory Tests Test 05/13/18 10:30 White Blood Count 4.9 x10^3/uL (4.0-11.0) Red Blood Count 4.29 x10^6/uL (4.30-5.70) Hemoglobin 14.0 g/dL (13.0-17.5) Hematocrit 41.0 % (39.0-53.0) Mean Corpuscular Volume 96 fL (79-100) Mean Corpuscular Hemoglobin 33 pg (25-35) Mean Corpuscular Hemoglobin Concent 34 g/dL (31-37) Red Cell Distribution Width 12.4 % (11.5-14.5) Platelet Count 203 x10^3/uL (140-400) Neutrophils (%) (Auto) 64 % (31-73) Lymphocytes (%) (Auto) 21 % (24-48) Monocytes (%) (Auto) 9 % (0-9) Eosinophils (%) (Auto) 5 % (0-3) Basophils (%) (Auto) 1 % (0-3) Neutrophils # (Auto) 3.1 x10^3uL (1.8-7.7) Lymphocytes # (Auto) 1.0 x10^3/uL (1.0-4.8) Monocytes # (Auto) 0.5 x10^3/uL (0.0-1.1) Eosinophils # (Auto) 0.2 x10^3/uL (0.0-0.7) Basophils # (Auto) 0.0 x10^3/uL (0.0-0.2) Micro Microbiology 05/09/18 Blood Culture - Preliminary, Resulted NO GROWTH AFTER 3 DAYS 05/09/18 Anaerobic/Aerobic Culture, Resulted Pending 05/09/18 Anaerobic Culture Result 1 (ISMAEL), Resulted Pending 05/09/18 Aerobic Culture - Final, Resulted 05/09/18 Aerobic Culture Result 1 (ISMAEL) - Final, Resulted 05/09/18 Aerobic Culture Result 2 (ISMAEL) - Final, Resulted 05/09/18 Antimicrobic Susceptibility - Final, Resulted 05/09/18 Gram Stain - Final, Resulted 05/09/18 Gram Stain Result 1 (ISMAEL) - Final, Resulted 05/09/18 Gram Stain Result 2 (ISMAEL) - Final, Resulted Objective Assessment 1. Abdominal wound. 2. Antibiotic allergies, HAS PENICILLIN LISTED, but has tolerated amoxicillin and Augmentin. 3. VANCOMYCIN LISTED RED MAN'S. 4. History of methicillin-resistant Staphylococcus aureus, currently on doxycycline prior to admission. 5. Diarrhea, has resolved. 6. Anxiety disorder. Plan Plan of Care po doxy and vantin Probiotics Supportive care ok to d/c d/w dr Gamal LOPEZ,VIVIEN Figueroa MD May 14, 2018 09:05
[2018-05-14] MEDS: LACTOBACILLUS RHAMNOSUS GG 1 CAPSULE. PO SCH ×2 (09:23→20:13)
[2018-05-14] MEDS: clonazePAM 1 MG TABLET PO SCH ×2 (09:24→20:14)
[2018-05-14] MEDS: CEFDINIR 300 MG CAPSULE PO SCH ×2 (09:24→20:14)
[2018-05-14] MEDS: ASCORBIC ACID 500 MG TABLET PO SCH (09:25)
[2018-05-14] MEDS: SERTRALINE 50 MG TABLET. PO SCH (09:25)
[2018-05-14] MEDS: MULTIVITAMIN with MINERAL TABLET. PO SCH (09:25)
[2018-05-14] MEDS: DOXYCYCLINE HYCLATE 100 MG TABLET PO SCH ×2 (09:25→20:14)
[2018-05-14] MEDS: MORPHINE ER 30 MG TABLET.ER PO SCH ×2 (09:26→20:14)
--- NOTE | 2018-05-14 09:58 | NUR ---
IP: Pt is mrsa + in abd wound requiring contact precautions.
--- NOTE | 2018-05-14 17:39 | NUR ---
Received phone call from [facility] regarding results from previous wound culture. She faxed results and the labs show that it is resistant to Cefdinir and Doxycycline which was Rx'd. Spoke with Dr. Dominguez regarding this and he stated that since our wound culture was more recent that we will go with the abx's already Rx'd.
[2018-05-14] MEDS: HYDROmorphone 2 MG TABLET PO PRN (19:32)
--- NOTE | 2018-05-14 22:35 | PN ---
DATE: 05/14/2018 SUBJECTIVE: The patient is resting slightly propped up in bed, in no apparent distress. On questioning him, he said that the adjustment in his wound VAC increases abdominal pain, but otherwise doing generally well. No nausea, no vomiting. No diarrhea or constipation. He was seen by the Infectious Disease as well as the wound care team. He was switched to oral antibiotic and we are awaiting the approval of his wound VAC, wanting to go home with home health and to follow with [facility] at [facility]. PHYSICAL EXAMINATION: GENERAL: When I saw him this morning, he looked well and was clearly in no apparent respiratory distress, pale. No jaundice, cyanosis, or thyromegaly. No jugular venous distension. No limb edema. VITAL SIGNS: His heart rate was 62, blood pressure was 98/57, temperature was 98.2, respiratory rate was 18 and oxygen saturation was 100%. HEAD, EYES, EARS, NOSE AND THROAT: Normocephalic, atraumatic. NECK: Supple. HEART: Showed normal first and second sounds. No gallop, rub or murmur. CHEST: Clear to auscultation. No crepitation or rhonchi. ABDOMEN: Distended, soft, nontender. NEUROLOGIC: He has a wound VAC in place. NEUROLOGIC: He is awake, alert, responding appropriately. All cranial nerves intact. He moves extremities without difficulty. His intake and output were incompletely recorded. LABORATORY DATA: Showed a white cell count 4900, hemoglobin 14, hematocrit 41, MCV 96, and platelet count 203,000. His chemistry showed a serum sodium 139, potassium 4.3, chloride 103, bicarbonate 25, anion gap of 11, BUN 4, creatinine 1, estimated GFR was 84 mL per minute. ASSESSMENT: 1. Abdominal wound that seems to be healing well, although he has some tunneling, covered, treated with vacuum assisted closure device. CT scan showed no evidence of any drainable abscesses. 2. Right upper extremity deep vein thrombosis involving the right brachial, extending to the right axillary vein for which he is now on the Lovenox 1 mg/kg subcutaneous twice a day. I will discontinue the PICC line. I will start him on Eliquis 10 mg twice a day for 7 days and then 5 mg twice a day for at least 3 months. FATIMAH NOLAND MD DR: Imani JOB#: [id number] / [id number]
[2018-05-15] MEDS: IV NORMAL SALINE 1000ML BAG 1,000 ML IV SCH (05:05)
[2018-05-15] MEDS: HYDROmorphone 2 MG TABLET PO PRN (07:22)
--- NOTE | 2018-05-15 08:26 | PDOC ---
Infectious Disease Note Subjective Subjective pt is feeling good ROS ROS no n/v/d/sob does not want wound vac, sec to pain Vital Sign Vital Signs Vital Signs Date Time Temp Pulse Resp B/P (MAP) Pulse Ox O2 Delivery O2 Flow Rate FiO2 05/15/18 07:22 16 Room Air 05/14/18 23:00 98.5 80 112/62 (79) 97 98.5 Physical Exam PHYSICAL EXAM GENERAL: Propped up in bed, alert, NAD HEENT: Pupils are equal and reactive. Oral cavity, pharynx clear. NECK: Supple. Good range of motion. LUNGS: Clear to auscultation bilaterally. HEART: S1, S2. ABDOMEN: Soft, nondistended. Abdominal wound, no redness ,, wound is clean and healthy granulation, tunneling to 8 o'clock position EXTREMITIES: Without clubbing, cyanosis or gross edema. SKIN: Warm to touch without signs of rash. Multiple tattoos. NEUROLOGIC: Alert, nonfocal, answered questions appropriately, moves all extremities. RUE-midline(05/09) bruising Labs Micro ANAEROBIC-AEROBIC CULTURE Final Final report ANAEROBIC RES 1 Final Comment No anaerobic growth in 72 hours. AEROBIC CULT Final Final report AEROBIC RES 1 Final Comment Methicillin - resistant Staphylococcus aureus Scant growth Based on resistance to oxacillin this isolate would be resistant to all currently available beta-lactam antimicrobial agents, with the exception of the newer cephalosporins with anti-MRSA activity, such as Ceftaroline AEROBIC RES 2 Final Comment Beta hemolytic Streptococcus, group B 1+ Penicillin and ampicillin are drugs of choice for treatment of beta-hemolytic streptococcal infections. Susceptibility testing of penicillins and other beta-lactam agents approved by the FDA for treatment of beta-hemolytic streptococcal infections need not be performed routinely because nonsusceptible isolates are extremely rare in any beta-hemolytic streptococcus and have not been reported for Streptococcus pyogenes (group A). (CLSI) CONTINUED ON NEXT PAGE RUN DATE: 05/13/18 PAGE 2 RUN TIME: 1913 [facility] [address] [place] [address] Gregg Kim M.D., X Ray Inspector SPEC: [id number] PATIENT: STARLA LEAL [id number] ( Continued) Procedure Result ANTIMICROBIAL SUSCEPTIBILITY Final Comment S = Susceptible; I = Intermediate; R = Resistant P = Positive; N = Negative MICS are expressed in micrograms per mL Antibiotic RSLT#1 RSLT#2 RSLT#3 RSLT#4 Ciprofloxacin R>=8 Clindamycin R>=8 Erythromycin R>=8 Gentamicin S<=0.5 Levofloxacin I =4 Linezolid S<=0.5 Oxacillin R =R Penicillin R>=0.5 Rifampin S<=0.5 Tetracycline S<=1 Trimethoprim/Sulfa S<=10 Vancomycin S<=0.5 GRAM STAIN Final Final report GRAM STAIN RES 1 Final Comment No white blood cells seen. GRAM STAIN RES 2 Final No organisms seen Performed at: - [facility] [address], [place], [place] [id number] Architecture Professor: ROOSEVELT Jeong MD, Phone: [phone] END OF REPORT Objective Assessment 1. Abdominal wound. 2. Antibiotic allergies, HAS PENICILLIN LISTED, but has tolerated amoxicillin and Augmentin. 3. VANCOMYCIN LISTED [employer]. 4. History of methicillin-resistant Staphylococcus aureus, currently on doxycycline prior to admission. 5. Diarrhea, has resolved. 6. Anxiety disorder. Plan Plan of Care po doxy and vantin Probiotics Supportive care ok to d/c d/w dr Gamal LOPEZ,VIVIEN Figueroa MD May 15, 2018 08:26
[2018-05-15] MEDS: LACTOBACILLUS RHAMNOSUS GG 1 CAPSULE. PO SCH (09:03)
[2018-05-15] MEDS: ASCORBIC ACID 500 MG TABLET PO SCH (09:03)
[2018-05-15] MEDS: DOXYCYCLINE HYCLATE 100 MG TABLET PO SCH (09:03)
[2018-05-15] MEDS: SERTRALINE 50 MG TABLET. PO SCH (09:03)
[2018-05-15] MEDS: MULTIVITAMIN with MINERAL TABLET. PO SCH (09:03)
[2018-05-15] MEDS: CEFDINIR 300 MG CAPSULE PO SCH (09:04)
[2018-05-15] MEDS: MORPHINE ER 30 MG TABLET.ER PO SCH (09:04)
[2018-05-15] MEDS: clonazePAM 1 MG TABLET PO SCH (09:04)
--- NOTE | 2018-05-15 09:12 | NUR ---
JENNI following, discussed with RN. JENNI contacted insurance transportation for pt, pt will be transported between 0945 and 1215. [facility] does not serve [place]. JENNI contacted [facility], who advised they cannot serve pt due to medicaid reimbursements. [facility] cannot serve pt due to non compliance in the past. [facility] does not take Medicaid, [facility] [place] [facility] not do [facility]. JENNI sent facesheet to [facility]. RN notified. JENNI will continue to follow.
[2018-05-15] MEDS ORDERED: CEFP200T PO (09:35)
[2018-05-15] MEDS ORDERED: DOXY100C14 PO (09:46)
--- NOTE | 2018-05-15 10:40 | NUR ---
SW following. [facility] advise they are not able to serve this pt. RN notified.
--- NOTE | 2018-05-15 12:20 | NUR ---
Discharge instructions reviewed with patient, verbalized understanding. Patient was escorted out via ambulation by Lovely HARMON.
--- NOTE | 2018-05-15 14:30 | DS ---
DATE OF DISCHARGE: 05/15/2018 HOSPITAL COURSE: The patient is a 37-year-old male patient who was admitted with open abdominal wound. He was seen actually at his primary care physician's office and was admitted directly to [facility], and we did consult the surgical team as well as Infectious Disease and wound care team. He did not require any surgical intervention, and he was seen by the Infectious Disease and was started on IV antibiotic after the PICC line in his right upper extremity, and the Wound Care has seen him, and he was started on a wound vacuum assisted closure device. He has a wound VAC approved as an outpatient, but the patient refused to use it claiming that he needs more pain medication and unfortunately does not qualify for home health, and therefore, a decision was made to discharge him home with wet to dry dressing and to follow with the wound care clinic. Unfortunately, he developed a right upper extremity deep vein thrombosis after the PICC line was placed, and therefore, he was treated with Lovenox, and he will be switched to Eliquis as an outpatient. PHYSICAL EXAMINATION: GENERAL: When I saw him this morning, he was resting, slightly propped up in bed, in no apparent respiratory distress. He was slightly pale, but no jaundice, cyanosis or thyromegaly. No jugular venous distension. No lower limb edema. VITAL SIGNS: His heart rate was 80, blood pressure 112/62, temperature was 98.5, respiratory rate was 16, and oxygen saturation was 97%. HEAD, EYES, EARS, NOSE AND THROAT: Normocephalic, atraumatic. NECK: Supple. HEART: Showed normal first and second heart sounds. No gallop, rub or murmur. CHEST: Clear to auscultation. No crepitation or rhonchi. ABDOMEN: Distended, soft, nontender. He has open abdominal wound with a clean base with no surrounding erythema, tenderness or discharge. NEUROLOGIC: He is awake, alert, responding appropriately. Cranial nerves intact. He moves extremities without difficulty. LABORATORY DATA: Showed a white cell count of 4900, hemoglobin 14, hematocrit 41, MCV was 96, and platelet count 203,000. His chemistry showed a serum sodium 139, potassium 4.3, chloride 103, bicarbonate 25, anion gap of 11, BUN 4, creatinine 1, estimated GFR was 84 mL per minute. Her glucose was 90, calcium was 9.5. Total bilirubin, AST, ALT, alkaline phosphatase were normal. Total protein was 7.8, albumin was 3.5. DISCHARGE MEDICATIONS: The patient was discharged home to continue on following medications: Eliquis 10 mg twice a day for 7 days and then Eliquis 5 mg twice a day for 3 months. He is on doxycycline 100 mg twice a day for 7 days, Vantin 200 mg twice a day for 7 days, hydromorphone 2 mg every 4 hours as needed, morphine sulfate 30 mg twice a day, Zofran 4 mg every 4 hours, sertraline for Zoloft 200 mg daily. FINAL DISCHARGE DIAGNOSES: 1. Open abdominal wound. 2. Right upper extremity deep venous thrombosis. 3. Severe anxiety. FATIMAH NOLAND MD DR: SHANNAN/leticia JOB#: [id number] / [id number]
== END 2018-05-15 12:20 | disposition home or self-care (01) | DRG 605 ==
LOC: 4 NORTH 15:16
PROVIDERS: ADMIT Internal Medicine; ATTEND Internal Medicine
PROC: 05HY33Z Insertion of Infusion Device into Upper Vein, Percutaneous Approach (ICD-10-PCS; principal; 2018-05-12)
PROC: 2W13X6Z Compression of Abdominal Wall using Pressure Dressing (ICD-10-PCS; 2018-05-12)
DX: S31.109A Unspecified open wound of abdominal wall, unspecified quadrant without penetration into peritoneal cavity, initial encounter (principal); I82.621 Acute embolism and thrombosis of deep veins of right upper extremity; L03.818 Cellulitis of other sites; F41.9 Anxiety disorder, unspecified; R19.7 Diarrhea, unspecified; E86.0 Dehydration; F17.210 Nicotine dependence, cigarettes, uncomplicated; B95.62 Methicillin resistant Staphylococcus aureus infection as the cause of diseases classified elsewhere; F32.9 Major depressive disorder, single episode, unspecified; Y93.89 Activity, other specified; Y92.89 Other specified places as the place of occurrence of the external cause; Y99.8 Other external cause status; Z88.0 Allergy status to penicillin; Z88.1 Allergy status to other antibiotic agents; Z86.14 Personal history of Methicillin resistant Staphylococcus aureus infection; Z83.3 Family history of diabetes mellitus
CPT/HCPCS: 36415; 71045; 74177; 80053; 85025; 87040; 87071; 87075; 87186; 93971; J0878; J1170; J1650; J2185; J2270; J2405; J7030; Q9967